=== PATIENT | male | born 1990 | race Caucasian/White ===

== ENCOUNTER 2019-09-01 16:39 | Outpatient (CLI) | payer OTHER, SELFPAY ==
--- NOTE | ~2019-09-01 | US_ITS ---
US right upper quadrant INDICATION: Right upper quadrant abdominal pain PROCEDURE: Realtime right upper abdominal ultrasound. COMPARISON: Comparison to multiple prior studies sequentially, with oldest reviewed study dated 08/01. FINDINGS: The pancreas is normal without focal mass or pancreatic ductal dilation. There is a circum scribed hyperechoic mass of the liver measuring 10 x 9 x 9 mm. A second hyperechoic mass measures 9 x 10 x 10 mm a third hyperechoic lesion measures 10 x 5 x 7 mm. A fourth hyperechoic mass measures 5 x 5 x 5 mm. There is normal directional flow in the portal vein. The gallbladder is normal without stones, gallbladder wall thickening or pericholecystic fluid. Comm on bile duct measures 4 mm. No sonographic Knutson's sign. IMPRESSION: 1: Stable hyperechoic liver masses, largest masses measure up to 10 mm. In the absence of known malig ignacio these likely represent benign hemangiomas. Reviewed, dictated and finalized at location A. ANICAL DESIGN TECHNICIAN IMPRESSION: 1: Stable hyperechoic liver masses, largest masses measure up to 10 mm. In the absence of known malignancy these likely represent benign hemangiomas.
== END 2019-09-01 16:40 | disposition home or self-care (01) ==
LOC: ANHIMG 16:44
PROVIDERS: PCP Family Medicine; Visit Provider Physician Assistant
DX: R10.11 Right upper quadrant pain (principal); R16.0 Hepatomegaly, not elsewhere classified
CPT/HCPCS: 76705

== ENCOUNTER 2020-10-22 12:31 | Emergency (ER) | payer OTHER, SELFPAY ==
--- NOTE | ~2020-10-22 | XR_ITS ---
EXAMINATION: XR chest 1V portable INDICATION: Cough, COVID 19 positive TECHNIQUE: Portable AP chest at 1437 hours COMPARISON: 04/11/2019 FINDINGS: There are patchy opacities in the right mid and lower lung zones. There is no pleural effus ion or pneumothorax. The cardiomediastinal silhouette is normal. IMPRESSION: 1. Patchy opacities of the right mid and lower lung zones compatible with COVID 19 pneumonia given th e clinical history. Reviewed, dictated and finalized at location A. IMPRESSION: 1. Patchy opacities of the right mid and lower lung zones compatible with COVID 19 pneumonia given the clinical history.
[2020-10-22 13:09] VITALS: BP 116/60; PULSE 87; RESP 20; TEMP 37.2; O2SAT 97
[2020-10-22 13:26] VITALS: BP 129/67; PULSE 88; RESP 18; O2SAT 98
--- NOTE | 2020-10-22 14:51 | ED.URI ---
HPI - URI/Sore Throat General Chief Complaint: Upper Respiratory Infection Stated Complaint: cough, covid + Time Seen by Provider: 10/22/20 13:18 Source: patient and old records reviewed Mode of arrival: ambulatory Limitations: no limitations History of Present Illness HPI Narrative: Patient is a 29-year-old male who presents to emergency department for evaluation of upper respiratory symptoms for 1 week patient has positive for COVID-19 notes cough with some aching pain of the chest made worse with coughing patient has been trying [id number] medications and prescribed inhaler with some improvement patient presents in no distress does not appear uncomfortable and has normal vital signs upon arrival patient also notes daily fevers Related Data Allergies Allergy/AdvReac Type Severity Reaction Status Date / Time amoxicillin Allergy Unknown Unknown Verified 10/22/20 13:13 Penicillins Allergy Unknown Unknown Verified 10/22/20 13:13 tramadol Allergy Unknown Unknown Verified 10/22/20 13:13 Review of Systems Review of Systems: All systems reviewed & are unremarkable except as noted in HPI and below PMFSH Family History Family History Mother Family history of mental disorder Grandparent Family history of malignant melanoma Family history of lymphoma Other Malignant neoplasm of prostate Social History Social History Smoking status: Never smoker Alcohol intake: current Gender identity (if verbalized by the patient): Male Exam Narrative: Exam Narrative: GENERAL: Well-appearing, well-nourished, and in no acute distress. HEAD: Normocephalic, atraumatic. EYES: PERRLA and EOMI. ENT: Nares clear, no rhinorrhea or epistaxis. Mucous membranes moist. CHEST: Clear to auscultation. No respiratory distress. No wheezes rales or rhonchi HEART: Regular rate and rhythm. No murmur heard. EXTREMITIES: Normal range of motion. No edema. SKIN: Warm, dry, no rash. NEURO: No focal deficits. Alert and oriented x3. Cranial nerves II through XII grossly intact PSYCH: Normal mood and affect. Course Course Emergency Course: Patient in the room hemodynamically stable in no distress no concerning findings on clinical exam patient thought to be safe for discharge home, will be treated symptomatically and advised to follow with primary care has been advised to purchase a home oximeter to watch his oxygen and if it is below 92% to return or if is having worsening symptoms patient agrees with this plan ABCs and vital signs intact and stable. Patient was given an MDI to use with his [place] Vital Signs Vital signs: Vital Signs Temperature 99.0 F 10/22/20 13:09 Pulse Rate 87 10/22/20 13:09 Respiratory Rate 20 10/22/20 13:09 Blood Pressure 116/60 10/22/20 13:09 Pulse Oximetry 97 10/22/20 13:09 Temperature 99.0 F 10/22/20 13:09 Pulse Rate 106 H 10/22/20 15:09 Respiratory Rate 18 10/22/20 15:09 Blood Pressure 125/71 10/22/20 15:09 Pulse Oximetry 97 10/22/20 15:09 MDM - URI/Sore Throat MDM Narrative Medical decision making narrative: Patient with Covid symptoms in no distress felt appropriate for outpatient reevaluation is felt unlikely, covid pneumonia on cxr. Hemodynamically stable no hypoxemia. Patient notes he has a home oximeter that he will use and will contact his primary care tomorrow Imaging Data Radiologist's impression: ITS Impressions Chest X-Ray 10/22/20 14:55 IMPRESSION: 1. Patchy opacities of the right mid and lower lung zones compatible with COVID 19 pneumonia given the clinical history. Discharge Plan Discharge Clinical Impression: COVID-19, Pneumonia Patient Disposition: Home, Self-Care Condition: Stable Instructions: Antibiotic Form, COVID-19 (Coronavirus Disease 2019) (ED) Additional Instructions: Follow up with your primary care prov
[2020-10-22 15:09] VITALS: BP 125/71; PULSE 106; RESP 18; O2SAT 97
== END 2020-10-22 15:55 | disposition home or self-care (01) ==
PROVIDERS: Emergency Provider Emergency Medicine; PCP Family Medicine
DX: U07.1 COVID-19 (principal); J12.82 Pneumonia due to coronavirus disease 2019
CPT/HCPCS: 71045; 99283

== ENCOUNTER → 2021-12-08 11:18 | Outpatient (CLI) | payer BC, SELFPAY ==
--- NOTE | ~2021-12-08 | XR_ITS ---
XR ankle LT min 3V DATE: 12/08/2021 11:26 INDICATION: Left ankle and foot pain TECHNIQUE: 4 views COMPARISON: None FINDINGS: Slight posterior calcaneal enthesopathy. No fracture or dislocation of the ankle or disruption of the ankle mortise. No periosteal reaction or bone destruction is detected. IMPRESSION: Slight posterior calcaneal enthesopathy Reviewed, dictated and finalized at location A.
== END ==
PROVIDERS: PCP Family Medicine; Visit Provider Physician Assistant
DX: M25.572 Pain in left ankle and joints of left foot (principal); M77.32 Calcaneal spur, left foot
CPT/HCPCS: 73610

== ENCOUNTER 2022-02-02 09:13 | Outpatient (CLI) | payer BC, SELFPAY ==
--- NOTE | ~2022-02-02 | MR_ITS ---
EXAMINATION: MR ankle LT wo con DATE: 02/02/2022 09:57 INDICATION: 2 months of left ankle pain and swelling TECHNIQUE: Magnetic resonance imaging (MRI) of the left ankle was performed without intravenous contr ast. Sequences included sagittal, coronal, and axial proton-density weighted fast spin echo without a nd with fat saturation. COMPARISON: None. FINDINGS: Medial ankle ligaments: Deep and superficial deltoid ligaments as well as the spring ligament are normal. Lateral ankle ligaments: The anterior and posterior inferior tibiofibular ligaments are normal. The anterior talofibular, calc aneofibular and posterior talofibular ligaments are normal. Tendons: Achilles tendon is normal. The peroneus longus and brevis tendons are normal. The tibialis anterior a nd extensor hallucis longus and extensor digitorum longus tendons are normal. The tibialis posterior, flexor digitorum longus and flexor hallucis longus tendons are normal. Plantar fascia: Latter aponeurosis is normal. Bones/other: Bone alignment is normal. No fracture or pathologic marrow replacing process. Subarticular lytic lesi on with suggestion of a tiny overlying cortical interruption along the articular surface at the later al malleolus near the level of the tibiotalar joint line. There appears to be focal overlying deep ch ondral ulceration suggested is related to osteoarthritis or potentially related to old trauma. There is relatively mild partial-thickness cartilage loss with nonuniform joint space narrowing at the ante romedial tibiotalar joint line with . Is also mild nonuniform joint space narrowing at a few of the t arsal metatarsal joints with additional subarticular edema-like or potentially developing cystic olivas ge along the medial margin of the distal articular surface of the medial cuneiform.. Fluid: Minimal tibiotalar joint effusion. No other abnormal fluid collections. IMPRESSION: 1. Subarticular lytic lesion at the lateral malleolus most likely degenerative cystic change related to osteoarthritis with overlying high-grade chondromalacia. Differential would include less likely an erosion in the setting of either gout or other inflammatory arthritis. Reviewed, dictated and finalized at location A. IMPRESSION: 1. Subarticular lytic lesion at the lateral malleolus most likely degenerative cystic change related to osteoarthritis with overlying high-grade chondromalaci a. Differential would include less likely an erosion in the setting of either g out or other inflammatory arthritis.
== END 2022-02-02 09:14 ==
LOC: MICIMG 09:14
PROVIDERS: PCP Family Medicine; Visit Provider Orthopaedic Surgery
DX: M25.572 Pain in left ankle and joints of left foot (principal)
CPT/HCPCS: 73721

== ENCOUNTER 2023-12-14 08:54 | Emergency (ER) | payer BC, SELFPAY ==
[2023-12-14 09:14] VITALS: BP 183/92; PULSE 96; RESP 16; TEMP 36.9; O2SAT 99
--- NOTE | 2023-12-14 09:16 | ED.GENADULT ---
HPI - General Adult General Chief complaint: Anxiety Stated complaint: NEEDS MED REFILL Time Seen by Provider: 12/14/23 09:20 Source: patient Mode of arrival: ambulatory Limitations: no limitations History of Present Illness HPI narrative: 33-year-old male patient presents to the [facility] with complaints of anxiety and needing his anxiety medication refill. Patient states he has been on clonazepam 1 mg b.i.d. for the last 11 years. Patient states he ran out on Friday and did call his primary doctor to get a refill however he states that the refill was never sent to the pharmacy. Patient states he has been having symptoms of feeling very jittery, restless, having anxiety and trouble sleeping. Denies any thoughts of SI or HI. Related Data Allergies Allergy/AdvReac Type Severity Reaction Status Date / Time amoxicillin Allergy Unknown Unknown Verified 12/14/23 09:10 Penicillins Allergy Unknown Unknown Verified 12/14/23 09:10 tramadol Allergy Unknown Unknown Verified 12/14/23 09:10 Review of Systems Review of Systems: CONSTITUTIONAL: Denies fever, chills, or sweats. EYES: Denies visual changes, redness, or discharge. ENT: Denies rhinorrhea, congestion, sore throat, or otalgia. CARDIOVASCULAR: Denies chest pain, palpitations, or edema. RESPIRATORY: Denies cough or dyspnea. GASTROINTESTINAL: Denies abdominal pain, nausea, vomiting, or diarrhea. GENITOURINARY: Denies dysuria or hematuria. SKIN: Denies rash or itching. MUSCULOSKELETAL: Denies back pain, joint pain, or myalgia. NEUROLOGIC: Denies headache, numbness, or weakness. positive jittery feeling, sleeplessness PSYCHIATRIC: Positive history of anxiety , denies depression. [facility] Past Medical History Medical History (Updated 12/14/23 @ 09:30 by HUSAM Giordano) Achilles bursitis or tendinitis COVID-30 October 2020 Generalized anxiety disorder GERD (gastroesophageal reflux disease) High risk sexual behavior Irritable bowel syndrome longterm use of drug Obesity Peroneal tendon rupture Post-void dribbling Family History Family History Mother Family history of mental disorder Grandparent Family history of malignant melanoma Family history of lymphoma Other Malignant neoplasm of prostate Social History Social History Social History: Caffeine-none Smoking status: Never smoker Alcohol intake: current Alcohol use details: occasionally Substance use: never Substance use type: does not use Lack of Transportation: No Lack of Food: Never True Current Housing: I Have Housing Concerned About Future Housing: No Difficulty Paying Gas/Electric Bills: No Difficulty Paying for Meds: No Currently Unemployed: No Education: Bachelor's Degree Difficulty w/ Childcare or Family Care: No Gender identity (if verbalized by the patient): Male Comments at the time of my signature I agree with nursing past medical history, surgical, social, and family history. There is no relevant family history pertinent to the presenting complaint. Exam Narrative: GENERAL: Well-appearing, well-nourished, and in no acute distress. HEAD: Normocephalic, atraumatic. EYES: PERRLA and EOMI. ENT: Nares clear, no rhinorrhea or epistaxis. Mucous membranes moist. NECK: Supple. No lymphadenopathy CHEST: Clear to auscultation. No respiratory distress. HEART: Regular rate and rhythm. No murmur heard. Normal peripheral pulses. ABDOMEN: Soft, nontender, nondistended, normal active bowel sounds. EXTREMITIES: Normal range of motion. No edema. SKIN: Warm, dry, no rash. NEURO: No focal deficits. Alert and oriented x3. Course Course Level of Care: Express Care Visit Vital Signs Vital signs: Vital Signs Temperature 36.9 C 12/14/23 09:14 Pulse Rate 96 12/14/23 09:14 Respiratory Rate 16 12/14/23 09:14 Blood Pressure 1
== END 2023-12-14 09:31 | disposition home or self-care (01) ==
PROVIDERS: Emergency Provider Nurse Practitioner Family; PCP Family Medicine
DX: F41.1 Generalized anxiety disorder (principal); K21.9 Gastro-esophageal reflux disease without esophagitis; E66.9 Obesity, unspecified; Z68.34 Body mass index [BMI] 34.0-34.9, adult; Z86.16 Personal history of COVID-19
CPT/HCPCS: 99211; G0463